=== PATIENT | male | born 1965 | race Hispanic/Latino ===

== ENCOUNTER 2022-10-01 07:08 | Day surgery (SDC) | payer BC ==
[2022-10-01] MEDS ORDERED: ROCURONIUM 50 MG/5 ML VIAL IV ONE (07:28)
[2022-10-01] MEDS ORDERED: FENTANYL CITR 100 MCG/2 ML ONE (07:28)
[2022-10-01] MEDS ORDERED: ONDANSETRON 4 MG/2 ML VIAL ONE (07:28)
[2022-10-01] MEDS ORDERED: LIDOCAINE 2% MPF 5 ML VIAL ONE (07:28)
[2022-10-01] MEDS ORDERED: propofoL 200 MG/20 ML VIAL IV ONE (07:28)
[2022-10-01] MEDS ORDERED: MIDAZOLAM HCL 2 MG/2 ML INJ ONE (07:28)
[2022-10-01] MEDS ORDERED: KETOROLAC 30 MG/ML INJ ONE (07:29)
[2022-10-01] MEDS ORDERED: Ringers Lactate 1,000 ML IV ONE ×2 (07:35→10:21)
[2022-10-01 07:53] LABS: Absolute Lymphocytes (CBC) 2.3 K/uL (0.7-4.9); Hematocrit 44.4 % (39.6-49.0); Lymphocytes % 34.3 % (15.3-44.8); MCV 92.2 fL (80-100); MPV 7.5 fL (7.6-11.3); RBC Red Blood Cell Count 4.81 M/uL (4.33-5.43)
--- NOTE | 2022-10-01 08:37 | RAD REPORT ---
EXAM DES[facility]: [facility]10/01/2022 8:08 am CLINICAL HISTORY: PRE-OP COMPARISON: No comparisons TECHNIQUE: PA and lateral views of the chest. FINDINGS: The lungs are clear. No pneumothorax or effusion. The cardiomediastinal contours are unrem arkable. IMPRESSION: No acute cardiopulmonary process.
[2022-10-01] MEDS: CEFAZOLIN SODIUM 1 GM/VIAL ONE ×2 (09:40→09:45)
[2022-10-01] MEDS ORDERED: NEOSTIGMINE 1 MG/ML -10 ML VIAL ONE (10:32)
[2022-10-01] MEDS ORDERED: GLYCOPYRROLATE 0.2 MG/ML SYR ONE ×2 (10:32)
[2022-10-01] MEDS ORDERED: Mastisol Adhesive Liq ONE (10:36)
--- NOTE | 2022-10-01 11:01 | P.BOP ---
Preoperative diagnosis: incarcerated umbilical hernia Postoperative diagnosis: same Primary procedure: Laparoscopic repair of incarcerated umbilical hernia 5cm Estimated blood loss: <10cc Specimen: sac and omentum Findings: incarcerated omentum Anesthesia: General Complications: None Implants: large ventralex Transferred to: Recovery Room Condition: Good
[2022-10-01] MEDS: HYDROMORPHONE HCL 1 MG/ML INJ ONE ×2 (11:14→11:19)
[2022-10-01] MEDS ORDERED: HYDROCODONE/APAP 10/325 TAB ONE (12:53)
--- NOTE | 2022-10-01 12:57 | EKG ---
Test Date: 2022-10-01 Test Time: 07:29:10 Respite Care Provider: HEAVEN MEASUREMENT RESULTS: Intervals: Rate: 72 NJ: 148 QRSD: 78 QT: 392 QTc: 429 H[place]: P: 44 NJ: 148 QRS: 42 T: 62 INTERPRETIVE STATEMENTS: Normal sinus rhythm Normal ECG No previous ECG available for comparison Electronically Signed On 10-01-22 12:56:39 [employer] by Alex Calix
[2022-10-01 16:03] VITALS: BP 101/82; TEMP 97.2; O2SAT 94
== END 2022-10-01 13:49 | disposition home or self-care (01) ==
LOC: OR 07:08
PROVIDERS: ATTEND Surgery
PROC: 0WUF4JZ Supplement Abdominal Wall with Synthetic Substitute, Percutaneous Endoscopic Approach (ICD-10-PCS; principal; 2022-10-01 08:45)
DX: K42.0 Umbilical hernia with obstruction, without gangrene (principal)
CPT/HCPCS: 93005; 85025; 80048; 36415; 88302; 71046; 49594; J2704; J2710; J2001; J2250; J3010; J1170; J7120 ×2; J2405; J0690